=== PATIENT | male | born 1980 | race African-American/Black ===

== ENCOUNTER 2023-02-09 23:26 | Emergency (ER) | payer MEDICAID ==
[~2023-02-09] VITALS: Ht 172.7 cm; Wt 73.0 kg
[2023-02-09 23:39] VITALS: BP 130/60; PULSE 80; RESP 16; TEMP 98.3; O2SAT 98
[2023-02-10] MEDS ORDERED: KETOROLAC 15MG/ML VIAL IM ONE (00:30)
[2023-02-10] MEDS ORDERED: NAPR-1176 MT (01:01)
[2023-02-10] MEDS ORDERED: TOPUD PO (05:59)
== END 2023-02-10 02:00 | disposition home or self-care (01) ==
LOC: ER 23:26
DX: M79.675 Pain in left toe(s) (principal)
CPT/HCPCS: 99283; 73620; 96372; J1885; Z7610